=== PATIENT | female | born 1970 | race Caucasian/White ===

== ENCOUNTER 2016-12-27 21:27 | Emergency (ER) | payer OTHER ==
[~2016-12-27] VITALS: Ht 157.5 cm; Wt 91.1 kg
[~2016-12-27 21:27] MED LIST: PERM5CRE TOP; PRED20 PO
[2016-12-27 21:29] VITALS: BP 141/90; PULSE 88; RESP 20; TEMP 98.4; O2SAT 98
[2016-12-27] MEDS ORDERED: LISI10TA3 PO (21:45)
--- NOTE | 2016-12-27 21:55 | PD ---
HPI Chief Complaint: Cold / Flu Symptoms Time Seen by Provider: 21:40 Travel History International Travel<30 days: No Contact w/Intl Traveler<30days: No Traveled to known affect area: No History of Present Illness HPI 46-year-old female presents to the emergency room for evaluation of productive cough, congestion, sore throat, and low-grade fever for the past 2 days. Patient states a person at work was sick with similar symptoms 3-4 days ago and coughed in her face. Highest temperature at home was 99.5 axillary. Patient has been taking Robitussin without significant relief in symptoms. Denies lung or heart conditions. Denies shortness of breath. No chronic medical conditions other than hypertension. PFSH Past Medical History Cardiovascular Problems: Yes (HTN) Diminished Hearing: No Kidney Stones: Yes Tetanus Vaccination: < 5 Years ?: Not LMP: ONE MONTH : 6 Para: 2 Miscarriage: 4 Past Surgical History Appendectomy: Yes Other Surgery: Yes (d and c ) Social History Alcohol Use: No Tobacco Use: No Substance Use: No Allergies-Medications (Allergen,Severity, Reaction): Coded Allergies: Penicillin (Verified Allergy, Severe, Respiratory Failure, 12/27/16) Reported Meds & Prescriptions Reported Meds & Active Scripts Active Reported Lisinopril 10 Mg Tab 10 Mg PO DAILY Review of Systems Except as stated in HPI: all other systems reviewed are Neg Physical Exam Narrative GENERAL: Well-nourished, well-developed female in no acute distress. Afebrile. Ambulatory. SKIN: Focused skin assessment warm/dry. HEAD: Normocephalic. EYES: No scleral icterus. No injection or drainage. ENT: Mucosa pink and moist. No erythema or exudates. No uvular edema. No uvular , palatal, or tonsillar deviation. Airway patent. Nasal turbinates appear normal without nasal blood, purulent drainage or septal hematoma. EARS: Bilateral pinnae and external canals appear within normal limits. Bilateral tympanic membranes without erythema, dullness or perforation. Mild effusion behind right tympanic membrane. NECK: Supple, trachea midline. No JVD or lymphadenopathy. CARDIOVASCULAR: Regular rate and rhythm without murmurs, gallops, or rubs. RESPIRATORY: Breath sounds equal bilaterally. No accessory muscle use. No crackles, rales, wheezes, or rhonchi. Data Data Last Documented VS Vital Signs Date Time Temp Pulse Resp B/P Pulse Ox O2 Delivery O2 Flow Rate FiO2 12/27/16 21:41 Room Air 12/27/16 21:29 98.4 88 20 141/90 98 MDM Medical Decision Making Medical Screen Exam Complete: Yes Emergency Medical Condition: Yes Medical Record Reviewed: Yes Differential Diagnosis Bronchitis, upper respiratory infection, streptococcal pharyngitis, pneumonia Narrative Course 46-year-old female presents to the emergency room for evaluation of cough, congestion, and sore throat for the past 2 days. Patient states someone at work coughed in her face 4 days ago. Maximum temperature at home is 99.5. Patient is afebrile and well-appearing in the emergency room. Vital signs stable. Resting comfortably in bed. Coughing occasionally and cough is nonproductive. No evidence of bacterial infection in the ears, nose, throat, or sinuses. No indication for antibiotics. This is viral upper respiratory infection. Patient was told to continue [id number] medications and follow up with a primary care physician or return for worsening symptoms. She understands and agrees to plan. Diagnosis Primary Impression: Upper respiratory infection Qualified Code: J00 - Acute nasopharyngitis Referrals: Primary Care Physician Patient Instructions: General Instructions, Upper Respiratory Infection (ED) Departure Forms: Tests/Procedures, Work Release Enter return to work date: Dec 31, 2016 Additional Instructions: Rest and drink plenty of fluids. Take [id number] cough and cold medications as directed for symptoms. Take ibuprofen with food as directed, as needed for pain. Follow-up with a primary care physician. Return to the emergency room for worsening symptoms. Disposition: 01 DISCHARGE HOME Condition: Stable Arcelia Matthew Dec 27, 2016 21:55
== END 2016-12-27 22:08 | disposition home or self-care (01) ==
LOC: PHEFT 21:27
DX: J06.9 Acute upper respiratory infection, unspecified (principal); I10 Essential (primary) hypertension
CPT/HCPCS: 99282